=== PATIENT | female | born 1950 | race Hispanic/Latino ===

== ENCOUNTER 2018-05-17 09:10 | Inpatient (IN) | payer MEDICARE, BC ==
[~2018-05-17] VITALS: Ht 165.1 cm; Wt 147.2 kg
[2018-05-17] VITALS (11 sets, daily range): BP systolic 100–139; BP diastolic 41–63
[2018-05-17] MEDS ORDERED: VANCOMYCIN 1GM/NS 250 ML 250 ML IV ONE (10:15)
[2018-05-17] MEDS ORDERED: PIPER-TAZ 3.375 GM 50 ML IV NR (10:15)
[2018-05-17 10:55] LABS: BASOPHILS % 0.2 % (0.0-1.0); EOSINOPHILS % 0.2 % (0.0-6.0); HEMATOCRIT 42.4 % (34.2-44.1); HEMOGLOBIN 14.4 g/dL (12.0-16.0); LYMPHOCYTES # (AUTO) 0.3 (1.0-3.2); LYMPHOCYTES % 3.6 % (18.0-39.1); MEAN CORPUSCULAR HEMOGLOBIN 34.4 pg (28-32); MEAN CORPUSCULAR VOLUME 101.4 fL (81-99); MONOCYTES # (AUTO) 0.4 (0.2-0.8); MONOCYTES % 4.7 % (4.4-11.3); NEUTROPHILS # (AUTO) 8.3 (2.1-6.9); NEUTROPHILS % 90.2 % (38.7-80.0); RED BLOOD COUNT 4.18 x10e6/uL (3.6-5.1); RED CELL DISTRIBUTION WIDTH 15.8 % (11.7-14.4)
[2018-05-17 10:56] LABS: CLARITY,URINE CLOUDY (CLEAR); COLOR,URINE YELLOW (YELLOW); KETONES,URINE TRACE (NEGATIVE); LEUKOCYTE ESTERASE ,URINE NEGATIVE (NEGATIVE); NITRITE,URINE POSITIVE (NEGATIVE); PROTEIN,URINE DIPSTICK 1+ (NEGATIVE); URINE UROBILINOGEN 4 mg/dL (0.2 - 1)
[2018-05-17 10:57] LABS: BILIRUBIN,URINE 3+ (NEGATIVE)
[2018-05-17 10:58] LABS: INR 2.15; PROTHROMBIN TIME 25.6 seconds (11.9-14.5)
[2018-05-17 10:59] LABS: PARTIAL THROMBOPLASTIN TIME 48.3 seconds (23.8-35.5)
[2018-05-17 11:07] LABS: BACTERIA,URINE FEW /HPF; EPITHELIAL CELLS,URINE FEW /LPF; WBC,URINE (MAN) 0-5 /HPF (0-5)
[2018-05-17 11:08] LABS: YEAST,URINE RARE
[2018-05-17 11:14] LABS: ALBUMIN 2.2 g/dL (3.5-5.0); ALBUMIN/GLOBULIN RATIO 0.6 (0.8-2.0); ANION GAP 17.3 mmol/L (8-16); CALCIUM 8.4 mg/dL (8.4-10.2); CREATININE, SERUM 1.5 mg/dL (0.57-1.11); MAGNESIUM 1.4 MG/DL (1.3-2.1); POTASSIUM 3.3 mmol/L (3.5-5.1)
[2018-05-17 11:20] LABS: B-TYPE NATRIURETIC PEPTIDE2 408.1 pg/mL (0-100)
--- NOTE | 2018-05-17 11:20 | Diagnostic Imaging Report ---
PROCEDURE: CHEST SINGLE (PORTABLE) COMPARISON: None. INDICATIONS: LEG EDEMA FINDINGS: LUNGS: Mild pulmonary vascular congestion. PLEURA: No effusions or pneumothorax. HEART & MEDIASTINUM: The heart is at the upper limits of normal in size. BONES & SOFT TISSUES: No acute findings. CONCLUSION: Mild pulmonary vascular congestion. Chintan Boyd D.O. Dictated by: Chintan Boyd D.O. on 05/17/2018 at 11:29 Electronically approved by: Chintan Boyd D.O. on 05/17/2018 at 11:29
[2018-05-17 11:21] LABS: PLATELET COUNT 38 x10e3/uL (140-360)
[2018-05-17 11:34] LABS: CREATINE KINASE MB 1.1 ng/mL (0-5.0); THYROID STIMULATING HORMONE 3.926 uIU/mL (0.350-4.940)
[2018-05-17] MEDS ORDERED: ONDANSETRON HCL INJ 2 MG/ML VIAL IV PRN (12:15)
--- OUTSIDE RECORDS SUMMARY | 2018-05-17 12:25 | XMS REPORT ---
[facility] Address Unknown Phone Unavailable Care Team Providers Care [employer] Name Role Phone Tammie JOSHUA Unavailable Unavailable Problems This patient has no known problems. Allergies, Adverse Reactions, Alerts This patient has no known allergies or adverse reactions. Medications This patient has no known medications. Results Test Description Test Time Test Comments Text Results Atomic Results Result Comments CHEST SINGLE (PORTABLE) 2018-05-17 11:29:00 [facility] [address] [address] Patient Name: STARLA FRENCH MR #: [id number] : 1950 Age/Sex: 67/F Req #: [id number] Adm Physician: Ordered by: ALEXIS JOSHUA MD Report #: [id number] Location: ER Room/Bed: Procedure: [id number] DX/CHEST SINGLE (PORTABLE) Exam Date: 05/17/18 Exam Time: 1040 REPORT STATUS: Signed PROCEDURE: CHEST SINGLE (PORTABLE) COMPARISON: None. INDICATIONS: LEG EDEMA FINDINGS: LUNGS: Mild pulmonary vascular congestion. PLEURA: No effusions or pneumothorax. HEART MEDIASTINUM: The heart is at the upper limits of normal in size. BONES SOFT TISSUES: No acute findings. CONCLUSION: Mild pulmonary vascular congestion. Heydi Boyd D.O. Dictated by: Heydi Boyd D.O. on 05/17/2018 at 11:29 Electronically approved by: Heydi Boyd D.O. on 05/17/2018 at 11:29 Dictated By: HEYDI BOYD DO 112 Transcribed By: JUAN MANUEL on 05/17/181128 COPY TO: ALEXIS JOSHUA MD
[2018-05-17 13:17] LABS: BAND NEUTROPHILS % (MANUAL) 12 %; LYMPHOCYTES % (MANUAL) 4 % (19-48); MONOCYTES % (MANUAL) 8 % (3.4-9.0); NEUTROPHILS % (MANUAL) 76 % (40-74)
[2018-05-17 13:18] LABS: ANISOCYTOSIS SLIG; PLATELET ESTIMATE MARKEDLY DECREASED; PLATELET MORPHOLOGY COMMENT FEW GIANT; POIKILOCYTOSIS SLIGHT; RBC MORPHOLOGY COMMENT NORMAL
--- NOTE | 2018-05-17 13:29 | Diagnostic Imaging Report ---
EXAMINATION: CT of the abdomen and pelvis without contrast. TECHNIQUE: Helical CT images of the abdomen and pelvis were performed from the lung bases to the lesser trochanters. No intravenous contrast was given per renal stone protocol. Coronal and sagittal reformatted images were obtained.Dose modulation, iterative reconstruction, and/or weight based adjustment of the mA/kV was utilized to reduce the radiation dose to as low as reasonably achievable. COMPARISON: None. CLINICAL HISTORY:Elevated liver function enzymes DISCUSSION: ABSENCE OF INTRAVENOUS CONTRAST DECREASES SENSITIVITY FOR DETECTION OF FOCAL LESIONS AND VASCULAR PATHOLOGY. ABDOMEN/PELVIS: LOWER THORAX: Unremarkable. HEPATOBILIARY:Nodular contour of the liver with enlargement of the left lobe and caudate. Cholelithiasis. SPLEEN: The spleen is enlarged measuring 16 cm. PANCREAS: No focal masses or ductal dilatation. ADRENALS: No adrenal nodules. KIDNEYS/URETERS: No hydronephrosis, stones, or solid mass lesions. PELVIC ORGANS/BLADDER: The bladder is normal. PERITONEUM/RETROPERITONEUM: No free air or fluid. LYMPH NODES: No intra-abdominal,retroperitoneal, pelvic or inguinal lymphadenopathy. VESSELS: The celiac trunk,superior and inferior mesenteric and bilateral renal arteries are patent The portal, superior mesenteric and splenic veins are patent. GI TRACT: No distention or wall thickening. Scattered diverticulosis. BONES AND SOFT TISSUES: Multilevel degenerative disc disease with fusion at L4-L5 and L5-S1. IMPRESSION: Cirrhotic liver morphology with portal hypertension manifested by splenomegaly. Cholelithiasis Signed by: Dr. Stephen Jay M.D. on 05/17/2018 1:25 PM
[2018-05-17] MEDS: SODIUM CHLORIDE 0.9% 1000ML 1,000 ML IV SCH ×2 (14:20→20:58)
[2018-05-17] MEDS: PIPERACILLIN/TAZO 2.25 GM 50 ML IV SCH (18:25)
[2018-05-17] MEDS ORDERED: MORPHINE SULFATE 2 MG/ML SYR IV PRN (20:45)
[2018-05-17] MEDS: MORPHINE SULFATE INJ 4 MG/ML INJ IV PRN (20:58)
[2018-05-18] VITALS (24 sets, daily range): BP systolic 95–144; BP diastolic 42–81
[2018-05-18] MEDS: PIPERACILLIN/TAZO 2.25 GM 50 ML IV SCH ×3 (00:32→12:00)
[2018-05-18 04:35] LABS: BASOPHILS # (AUTO) 0.1 (0.0-0.1); EOSINOPHILS % 0.4 % (0.0-6.0); HEMATOCRIT 35.5 % (34.2-44.1); HEMOGLOBIN 11.7 g/dL (12.0-16.0); LYMPHOCYTES # (AUTO) 0.4 (1.0-3.2); LYMPHOCYTES % 5.4 % (18.0-39.1); MEAN CORPUSCULAR HEMOGLOBIN 33.8 pg (28-32); MEAN CORPUSCULAR VOLUME 102.6 fL (81-99); MONOCYTES # (AUTO) 0.8 (0.2-0.8); NEUTROPHILS # (AUTO) 6.6 (2.1-6.9); RED BLOOD COUNT 3.46 x10e6/uL (3.6-5.1)
[2018-05-18 04:43] LABS: PLATELET COUNT 31 x10e3/uL (140-360)
[2018-05-18 04:53] LABS: INR 2.25; PROTHROMBIN TIME 26.6 seconds (11.9-14.5)
[2018-05-18 04:54] LABS: PARTIAL THROMBOPLASTIN TIME 47.9 seconds (23.8-35.5)
[2018-05-18 05:03] LABS: ALBUMIN 1.6 g/dL (3.5-5.0); ALBUMIN/GLOBULIN RATIO 0.5 (0.8-2.0); ANION GAP 15.6 mmol/L (8-16); CALCIUM 7.7 mg/dL (8.4-10.2); CREATININE, SERUM 1.35 mg/dL (0.57-1.11); POTASSIUM 3.6 mmol/L (3.5-5.1)
[2018-05-18 05:09] LABS: CREATINE KINASE MB 0.5 ng/mL (0-5.0)
--- NOTE | 2018-05-18 06:09 | Diagnostic Imaging Report ---
EXAMINATION: CHEST SINGLE (PORTABLE) INDICATION: Infectious process. COMPARISON: Abdominal CT 05/27/2018 FINDINGS: AP view TUBES and LINES: None. LUNGS: Lungs are well inflated. Central pulmonary venous congestion. Mild bibasilar atelectasis. There is no evidence of pneumonia or pulmonary edema. PLEURA: No pleural effusion or pneumothorax. HEART AND MEDIASTINUM: Mild enlargement of the cardiac silhouette. BONES AND SOFT TISSUES: No acute osseous lesion. Soft tissues are unremarkable. UPPER ABDOMEN: No free air under the diaphragm. IMPRESSION: Mild enlargement of the cardiac silhouette with central pulmonary venous congestion. Signed by: DR. Jefferson Oglesby MD on 05/18/2018 6:06 AM
[2018-05-18 07:19] LABS: ANISOCYTOSIS SLIGHT; BAND NEUTROPHILS % (MANUAL) 7 %; LYMPHOCYTES % (MANUAL) 7 % (19-48); METAMYELOCYTES % (MANUAL) 1 % (0-0); MONOCYTES % (MANUAL) 7 % (3.4-9.0); NEUTROPHILS % (MANUAL) 78 % (40-74); PLATELET ESTIMATE MODERATELY DECREASED; RBC MORPHOLOGY COMMENT NORMAL; TOXIC GRANULATION SLIGHT
[2018-05-18 07:20] LABS: PLATELET MORPHOLOGY COMMENT NORMAL
[2018-05-18] MEDS: SODIUM CHLORIDE 0.9% 1000ML 1,000 ML IV SCH ×2 (08:45→22:06)
[2018-05-18] MEDS: MORPHINE SULFATE INJ 4 MG/ML INJ IV PRN (10:34)
[2018-05-18 13:44] LABS: CREATINE KINASE MB 0.5 ng/mL (0-5.0)
[2018-05-18] MEDS ORDERED: VANCOMYCIN 1GM/NS 250 ML 250 ML IV ONE (14:15)
[2018-05-18] MEDS ORDERED: LEVOFLOXACIN 500MG/D5W 100ML 100 ML IV ONE (14:49)
[2018-05-18] MEDS ORDERED: MEROPENEM 500 MG VIAL ONE (14:56)
[2018-05-18] MEDS ORDERED: SODIUM CHLORIDE 0.9% 50ML 50 ML ONE (14:56)
[2018-05-18] MEDS: MEROPENEM 500MG/ NS 50ML 50 ML IV SCH ×2 (15:00→22:06)
[2018-05-18] MEDS: DOXYCYCLINE 100MG/NS 100ML 100 ML IV SCH (15:40)
--- NOTE | 2018-05-18 16:37 | History and Physical ---
PRIMARY CARE PHYSICIAN: Unassigned. CHIEF COMPLAINT: Sepsis with shock and bilateral lower extremity cellulitis with blister, lymphedema worse on the left leg compared to the right. HISTORY OF PRESENT ILLNESS: Patient is a 67-year-old female with severe sepsis associated with low blood pressure, dehydration, left lower extremity significantly red with blister. Patient has not seen any doctor for quite some time. She does not have a primary care physician. In the emergency room, the patient with low-grade fever, blood pressure was low, but she does have vascular congestion; therefore, not much of fluid can be given. Patient did place on normal saline at 75 mL an hour. Her left lower extremity swelling with redness. She does have severe coagulopathy. Her platelet was 31 and her INR was 2.2. The patient has a portal hypertension associated with liver cirrhosis. The patient is morbidly obese and she is now admitted to the ICU for treatment. Antibiotic initiated. PAST MEDICAL HISTORY: Bilateral lower extremity lymphedema for quite some time. PAST SURGICAL HISTORY: Noncontributory. SOCIAL HISTORY: Patient does not smoke or use alcohol. No recreational drugs. ALLERGIES: NO KNOWN ALLERGY. HOME MEDICATIONS: None. REVIEW OF SYSTEMS: Increasing shortness of breath, bilateral lower extremity pain, worse on the left compared to right, blister and redness. PHYSICAL EXAMINATION VITAL SIGNS: T-max is 100, blood pressure 131/83, pulse rate 90, and respirations 20. GENERAL: The patient is in no acute distress. She is awake. HEENT: Normocephalic, atraumatic. Sclerae anicteric. NECK: Supple grossly. PULMONARY: Diminished breath sounds bilaterally with some rales. CARDIOVASCULAR: S1 and S2. Regular rate and rhythm. ABDOMEN: Morbidly obese. EXTREMITIES: Left lower extremities significantly swollen with redness and blistering. Right lower extremity mildly edematous with some redness as well. NEUROLOGIC: No focal deficit. LABORATORY: Sodium is 139, potassium 3.6, chloride 108, bicarb 19, BUN 46, creatinine 1.3, and glucose 86. WBC is 8.2, hemoglobin 11.7, hematocrit 35.5, and platelets 31,000. PTT 26.6, PTT 47.9, INR is 2.25. AST is 41, ALT 31, and total bilirubin is 6.1. IMPRESSION 1. Sepsis with shock. 2. Severe left lower extremity cellulitis. 3. Coagulopathy secondary to liver cirrhosis and infection, possible from sepsis and bacteremia. 4. Jaundice with total bilirubin is 6.1 with poor hypertension on the CT scan. 5. Critically ill, but stable. PLAN: Continue with IV antibiotics. Echocardiogram. Consultation with Dr. Gifty Jarvis and Dr. Polo Starkey. Add on vancomycin. Check culture. Continue with current treatment. The patient will need to monitor coagulation closely. The patient may need further workup for her liver disease. We will consult gastroenterology as well. Job#: [id number] FEDERICO
[2018-05-18 16:42] LABS: HIV 1&2 AB SCREEN NON-REACTIVE (NONREACTIVE)
[2018-05-18] MEDS: LEVOFLOXACIN 500MG/D5W 100ML 100 ML IV SCH (17:00)
--- NOTE | 2018-05-18 17:40 | Consultation ---
DATE OF CONSULTATION: HISTORY OF PRESENT ILLNESS: This is a patient who is currently in the intensive care unit. She is a 67-year-old female with history of obesity. She has not seen a physician in more than 15 years. Beside the obesity, she does have a strong family history of liver cirrhosis, her mother had it and her sister had it, they both at early age. The patient comes into the emergency room because she is not feeling well. Her left leg is red and swollen. The patient is telling me that she has been sick for some time. Both legs are getting swollen in the last few days, but the patient noted in the last few days that in left leg, there is redness and swelling and of interest when I examined her, there is black bullous lesion noted on the leg. The patient was admitted. When she first came to emergency room, she was hypotensive, so she was admitted to intensive care unit, but she is better now in terms of vital signs. PAST MEDICAL HISTORY: She denies, but she does have obesity noticeably. She also have bilateral lower extremities lymphedema. PAST SURGICAL HISTORY: She denies. ALLERGIES: NKA. SOCIAL HISTORY: There is no smoking, drug abuse, or alcohol abuse. The patient lives at home. No hunting or camping. No water exposure. LABORATORY DATA: White count is 8.20, hemoglobin 11.7, hematocrit 35, her platelet of 31 on admission. Her sodium 139, potassium 3.6, creatinine 1.35 today, it was 1.5 on admission. Her AST 57, ALT 42, lactic acid 39. FAMILY HISTORY: Liver cirrhosis. REVIEW OF SYSTEMS GENERAL: She is just not feeling well in general, but she is feeling better in general since she came here. HEENT: There is no headache, visual changes, hearing changes. GI: There is no nausea, vomiting, or diarrhea. CARDIAC: There is no arrhythmia. NEURO: No seizure activity. SKIN: There is no other rashes except on the leg as mentioned above. Both legs with erythematous changes but the left leg has a bullous lesion and it is more red than the right. PHYSICAL EXAMINATION GENERAL: She is currently alert, oriented. Does not seem to be in acute distress. VITALS: Stable, currently afebrile. HEENT: She does not appear icteric. NECK: Supple. CHEST: Clear. HEART: S1 and S2. No murmur. ABDOMEN: Soft, obese. EXTREMITIES: The leg, there is significant erythema on the left leg from and the ankle all the way to the knee. There is black bullous lesion noted on the leg anteriorly. The right leg, there is induration and mild erythema. IMPRESSION 1. Sepsis on admission, bacteremia gram-negative. Concern about Vibrio vulnificus in a patient who have liver disease. We will put him on meropenem, doxycycline, and Levaquin. 2. Cellulitis of the leg, concern about soft tissue infection, concern about vibrio. We will observe. I told patient and the nurse if there is new bullous lesion, they are to contact me. 1. Liver cirrhosis, newly diagnosed. Will check hepatitis A, B and C with concern that there is hereditary component to it with a strong family history. GI has been consulted. 2. Obesity. 3. Chronic kidney disease with acute kidney injury. 4. We will follow with you. Job#: [id number] KATERIN
[2018-05-19] VITALS (17 sets, daily range): BP systolic 107–150; BP diastolic 36–66
[2018-05-19] MEDS: DOXYCYCLINE 100MG/NS 100ML 100 ML IV SCH ×2 (03:00→14:29)
[2018-05-19 05:02] LABS: BASOPHILS % 0.2 % (0.0-1.0); EOSINOPHILS # (AUTO) 0.2 (0.0-0.4); EOSINOPHILS % 1.8 % (0.0-6.0); HEMATOCRIT 35.1 % (34.2-44.1); HEMOGLOBIN 11.9 g/dL (12.0-16.0); LYMPHOCYTES % 8.1 % (18.0-39.1); MEAN CORPUSCULAR HEMOGLOBIN 33.9 pg (28-32); MEAN CORPUSCULAR HGB CONC 33.9 g/dL (31-35); MONOCYTES # (AUTO) 1.6 (0.2-0.8); MONOCYTES % 12.8 % (4.4-11.3); NEUTROPHILS # (AUTO) 8.2 (2.1-6.9); NEUTROPHILS % 67.8 % (38.7-80.0); RED BLOOD COUNT 3.51 x10e6/uL (3.6-5.1); RED CELL DISTRIBUTION WIDTH 16.1 % (11.7-14.4)
[2018-05-19 05:06] LABS: PLATELET COUNT 38 x10e3/uL (140-360)
[2018-05-19 05:20] LABS: ALBUMIN 1.6 g/dL (3.5-5.0); ALBUMIN/GLOBULIN RATIO 0.5 (0.8-2.0); ANION GAP 12.7 mmol/L (8-16); CALCIUM 7.6 mg/dL (8.4-10.2); CREATININE, SERUM 1.54 mg/dL (0.57-1.11); POTASSIUM 3.7 mmol/L (3.5-5.1)
[2018-05-19 05:43] LABS: THYROID STIMULATING HORMONE 5.143 uIU/mL (0.350-4.940)
[2018-05-19 06:15] LABS: FOLATE 6.4 ng/mL (7.0-15.4)
[2018-05-19] MEDS: MEROPENEM 500MG/ NS 50ML 50 ML IV SCH ×3 (07:00→22:00)
[2018-05-19] MEDS: VANCOMYCIN 1GM/NS 250 ML 250 ML IV SCH (09:00)
[2018-05-19 11:45] LABS: BAND NEUTROPHILS % (MANUAL) 15 %; EOSINOPHILS % (MANUAL) 1 % (0-7); LYMPHOCYTES % (MANUAL) 7 % (19-48); MONOCYTES % (MANUAL) 13 % (3.4-9.0); NEUTROPHILS % (MANUAL) 64 % (40-74)
[2018-05-19 11:46] LABS: PLATELET ESTIMATE MARKEDLY DECREASED; PLATELET MORPHOLOGY COMMENT NORMAL; RBC MORPHOLOGY COMMENT NORMAL
[2018-05-19] MEDS ORDERED: PHYTONADIONE 10 MG/ML AMP SQ ONE (12:00)
[2018-05-19] MEDS: LEVOTHYROXINE SODIUM 25 MCG TABLET PO SCH (13:12)
--- NOTE | 2018-05-19 14:42 | Consultation ---
DATE OF CONSULTATION: May 19, 2018 REASON FOR CONSULTATION: Cirrhosis. HISTORY OF PRESENT ILLNESS: Ms. Little is a 67-year-old female, with apparently no significant past medical history who comes into the emergency room complaining of feeling ill. The patient was found to have significant laboratory abnormalities, also gram-negative septicemia with lower extremity edema, was admitted. Labs also revealed possible cirrhosis and a GI consult has been placed. Upon interrogation, the patient denies actually ever being told that she had cirrhosis though she did not seek physician help. Evaluation for the last 16 years has not had any recent labs or anything like that. Interestingly, there is significant history of liver disease in her family with apparently 2 of her siblings and her mother apparently dying of liver disease. Risk factors for liver disease, morbid obesity. She denies alcohol abuse, denies transfusion, denies tattoos, denies intravenous drug use, denies body piercing. PAST MEDICAL HISTORY: As in HPI. FAMILY HISTORY: As is stated before. Significant for liver disease. SOCIAL HISTORY: Apparently, she does not smoke or drink. REVIEW OF SYSTEMS: As in the HPI. ALLERGIES: NO APPARENT DRUG ALLERGY. PHYSICAL EXAMINATION VITAL SIGNS: All within normal limits. GENERAL: A pleasant obese female in no distress. HEENT: Unremarkable. She appeared to be anicteric. NECK: Supple. LUNGS: Clear. ABDOMEN: Obese and soft with no obvious masses or tenderness, though difficult to assess for hepatosplenomegaly. There was no obvious ascites, though because of her body habitus, it was also difficult to assess. No rebound or guarding. RECTAL: Deferred. NEUROLOGICAL: There were no focal deficits. No asterixis. She was alert and oriented x3. LABORATORY DATA: Today, white count was 12,100, hemoglobin 11.9, hematocrit 35. MCV was 100. Platelet count was 38,000 which has not changed since admission. Differential with a left shift. Blood chemistry today showed sodium of 132, potassium of 3.7, BUN was 59, creatinine was 1.54. Glucose was 85. Total bilirubin was 6.8, AST was 55, ALT was 33, alk phos was 118, albumin was 1.6. INR was 2.25, PTT was 47.9, and PT was 26.6. Hepatitis studies are pending. HIV studies were negative. CT scan of abdomen and pelvis, did reveal possible cholelithiasis, with cirrhotic liver and portal hypertension. ASSESSMENT: A middle-aged female admitted with sepsis of unknown source, we are asked to evaluate for liver disease. Liver disease at this point seems to be fairly well compensated and I suspect most likely it is either going to be cryptogenic or secondary to nonalcoholic steatohepatitis and morbid obesity. She seems to be having reasonable compensated disease at this point. PLAN 1. We will obtain labs to rule out other forms of chronic liver disease, particularly, autoimmune liver disease which may be a possibility, considering her family history. 2. Abdominal ultrasound with Doppler. 3. We will follow with you. She may need an EGD to rule out esophageal varices prior to discharge. Job#: [id number] BAILEE
[2018-05-19] MEDS ORDERED: ALBUMIN 25% 12.5GM 0.25 GM/ML BTL IV ONE ×2 (15:00→17:00)
[2018-05-19] MEDS: LEVOFLOXACIN 500MG/D5W 100ML 100 ML IV SCH (17:05)
[2018-05-19] MEDS: SODIUM BICARBONATE 650 MG TAB PO SCH (18:09)
[2018-05-19] MEDS: TRAMADOL HCL 50 MG TAB PO PRN (18:15)
--- NOTE | 2018-05-19 19:52 | Consultation ---
DATE OF CONSULTATION: May 18, 2018 CARDIOLOGY CONSULTATION ATTENDING PHYSICIAN: Dr. Lu Harman. CLINICAL HISTORY: This is a 67-year-old woman referred by Dr. Lu Harman for evaluation of possible congestive heart failure with chest x-ray showing cardiomegaly and pulmonary edema, but with the patient not complaining of any shortness of breath nor any chest pains. This unfortunate woman does not see a physician and has not seen one for a long time. She has extensive family history of cryptogenic cirrhosis of the liver including mother, sister, and 2 aunts. She presented to the emergency room because of lower extremity edema causing cellulitis and gram-negative bacteremia. Additionally, she was found to be cirrhotic and jaundiced with bilirubin was 6.8, albumin was 1.6, the creatinine was 1.3 with BUN of 46. Cardiac enzymes were negative. Cardiology consultation requested. PAST MEDICAL HISTORY: Remarkable for edema of lower extremities for approximately a year. This edema tends to be better when she wakes up in the morning, worse at the end of the day. PAST SURGERIES: None. 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 Denies smoking, drinking, drug abuse. No history of hepatitis. ALLERGIES: NONE KNOWN. FAMILY HISTORY: Sister, mother, and 2 aunts from cryptogenic cirrhosis. There is no clear history of hepatitis in her environment. REVIEW OF SYSTEMS: Noncontributory. PHYSICAL EXAMINATION GENERAL: She is markedly obese, appears to be comfortable. CARDIAC: Jugular veins were not distended. S1, S2 are regular. There is a 2/6 systolic murmur. LUNGS: Clear. ABDOMEN: Soft. Bowel sounds are present. EXTREMITIES: Showed 3+ pitting edema. LABORATORY STUDIES: The sodium is 139, potassium 3.6, bicarb is 19, BUN is 46, creatinine 1.35, bilirubin 6.1, alkaline phosphatase 98, albumin 1.6. White count was 8200, platelet count 31,000. IMPRESSION 1. Rule out congestive heart failure with chest x-ray suspicious but could be artefact of her obesity and technique. She denies any chest pains or shortness of breath. 2. Cirrhosis of the liver with elevated INR of 2.2, bilirubin of 6.1 and splenomegaly with portal hypertension of undetermined etiology. 3. Extensive family history of cryptogenic cirrhosis in mother, sister, and 2 aunts. 4. Azotemia with BUN of 46, creatinine 1.35, likely to be acute. 5. Hypoalbuminemia, exacerbating peripheral edema. 6. Peripheral edema, causing cellulitis and gram-negative sepsis. 7. Gram-negative bacteremia. 8. Possible hypothyroidism, TSH of 5.1. 9. Severe thrombocytopenia, platelet count 38,000, probably related to cirrhosis of the liver. RECOMMENDATIONS: Review echocardiogram. This patient's EKG does not show any acute changes to suggest coronary artery disease. Correct metabolic abnormalities including acidosis, hypoalbuminemia in order to enhance the diuresis for her severe peripheral edema. Job#: [id number] LPA cc:LU HARMAN MD
[2018-05-20] VITALS (8 sets, daily range): BP systolic 132–157; BP diastolic 55–68
[2018-05-20] MEDS: SODIUM BICARBONATE 650 MG TAB PO SCH ×4 (00:12→17:20)
[2018-05-20] MEDS: TRAMADOL HCL 50 MG TAB PO PRN ×2 (00:15→12:08)
[2018-05-20] MEDS: DOXYCYCLINE 100MG/NS 100ML 100 ML IV SCH ×2 (03:00→16:21)
[2018-05-20] MEDS: MEROPENEM 500MG/ NS 50ML 50 ML IV SCH ×3 (05:28→21:59)
[2018-05-20] MEDS: LEVOTHYROXINE SODIUM 25 MCG TABLET PO SCH (05:28)
[2018-05-20 05:44] LABS: BASOPHILS % 0.2 % (0.0-1.0); EOSINOPHILS # (AUTO) 0.2 (0.0-0.4); EOSINOPHILS % 1.9 % (0.0-6.0); HEMATOCRIT 33.1 % (34.2-44.1); HEMOGLOBIN 11.6 g/dL (12.0-16.0); LYMPHOCYTES # (AUTO) 0.8 (1.0-3.2); LYMPHOCYTES % 6.4 % (18.0-39.1); MEAN CORPUSCULAR HEMOGLOBIN 34.3 pg (28-32); MEAN CORPUSCULAR VOLUME 97.9 fL (81-99); MONOCYTES # (AUTO) 1.4 (0.2-0.8); MONOCYTES % 11.3 % (4.4-11.3); NEUTROPHILS % 71.3 % (38.7-80.0); RED BLOOD COUNT 3.38 x10e6/uL (3.6-5.1); RED CELL DISTRIBUTION WIDTH 15.8 % (11.7-14.4)
[2018-05-20 05:48] LABS: PLATELET COUNT 40 x10e3/uL (140-360)
[2018-05-20 05:54] LABS: INR 1.75; PROTHROMBIN TIME 21.8 seconds (11.9-14.5)
[2018-05-20 06:01] LABS: ALBUMIN 2.1 g/dL (3.5-5.0); ALBUMIN/GLOBULIN RATIO 0.7 (0.8-2.0); ANION GAP 10.5 mmol/L (8-16); CALCIUM 7.9 mg/dL (8.4-10.2); CREATININE, SERUM 1.27 mg/dL (0.57-1.11); POTASSIUM 3.5 mmol/L (3.5-5.1)
[2018-05-20 06:53] LABS: ALBUMIN 1.9 g/dL (3.5-5.0); BILIRUBIN,DIRECT 4.6 mg/dL (0.0-0.5)
[2018-05-20 07:13] LABS: FERRITIN 817.2 ng/mL (4.63-204.00)
[2018-05-20 08:58] LABS: EOSINOPHILS % (MANUAL) 3 % (0-7); LYMPHOCYTES % (MANUAL) 7 % (19-48); MONOCYTES % (MANUAL) 6 % (3.4-9.0); NEUTROPHILS % (MANUAL) 83 % (40-74)
[2018-05-20 09:01] LABS: PLATELET ESTIMATE MARKEDLY DECREASED; PLATELET MORPHOLOGY COMMENT NORMAL; RBC MORPHOLOGY COMMENT NORMAL
[2018-05-20] MEDS: VANCOMYCIN 1GM/NS 250 ML 250 ML IV SCH (09:23)
--- NOTE | 2018-05-20 09:37 | Diagnostic Imaging Report ---
PROCEDURE:ABDOMINAL ULTRASOUND COMPARISON:CT Abdomen/Pelvis without contrast 05/17/18. INDICATIONS:CIRRHOSIS FINDINGS: Liver: The liver is heterogeneous in appearance and measures up to 13.4 cm. Normal hepatic parenchymal echogenicity. No focal mass. Main portal vein: Measures 0.7 cm, Hepatopetal flow. Gallbladder: Limited evaluation due to overlying bowel gas. Cholelithiasis noted on CT from 05/17/18 is not well seen on ultrasound. Common Bile Duct: Measures 0.4 cm. No echogenic filling defect. Sonographic Zimmerman's sign: Negative. Right kidney: Measures 11.1 cm. No solid or cystic mass, echogenic calculi, or hydronephrosis. Normal parenchymal echogenicity. Left kidney: Measures 13.0 cm. No solid or cystic mass, echogenic calculi, or hydronephrosis. Normal parenchymal echogenicity. Spleen: Enlarged, measuring 16 cm. Pancreas: Limited evaluation due to body habitus. Inferior vena cava: Limited evaluation due to body habitus. Aorta: Limited evaluation due to body habitus. Ascites: None. CONCLUSION: Somewhat limited evaluation due to body habitus. Cirrhotic morphology of the liver. Splenomegaly. Dictated by: BONI CRANE M.D. on 05/20/2018 at 9:46 Electronically approved by: BONI CRANE M.D. on 05/20/2018 at 9:46
[2018-05-20] MEDS: LEVOFLOXACIN 500MG/D5W 100ML 100 ML IV SCH (17:20)
[2018-05-20] MEDS: MORPHINE SULFATE INJ 4 MG/ML INJ IV PRN (17:20)
[2018-05-21] VITALS (7 sets, daily range): BP systolic 125–171; BP diastolic 48–76
[2018-05-21] MEDS: DOXYCYCLINE 100MG/NS 100ML 100 ML IV SCH ×2 (02:52→15:32)
[2018-05-21] MEDS: MEROPENEM 500MG/ NS 50ML 50 ML IV SCH ×3 (06:33→23:10)
[2018-05-21] MEDS: LEVOTHYROXINE SODIUM 25 MCG TABLET PO SCH (06:33)
[2018-05-21] MEDS: VANCOMYCIN 1GM/NS 250 ML 250 ML IV SCH ×2 (10:00→21:09)
[2018-05-21 11:19] LABS: ALBUMIN/GLOBULIN RATIO 0.7 (0.8-2.0); ANION GAP 13.8 mmol/L (8-16); CALCIUM 7.3 mg/dL (8.4-10.2); CREATININE, SERUM 0.99 mg/dL (0.57-1.11); POTASSIUM 3.8 mmol/L (3.5-5.1)
[2018-05-21] MEDS: TRAMADOL HCL 50 MG TAB PO PRN (14:57)
[2018-05-21] MEDS: LEVOFLOXACIN 500MG/D5W 100ML 100 ML IV SCH (16:32)
[2018-05-22 00:13] VITALS: BP 130/59
[2018-05-22] MEDS: DOXYCYCLINE 100MG/NS 100ML 100 ML IV SCH ×2 (03:14→15:02)
[2018-05-22 04:00] VITALS: BP 139/54
[2018-05-22] MEDS: LEVOTHYROXINE SODIUM 25 MCG TABLET PO SCH (06:15)
[2018-05-22] MEDS: MEROPENEM 500MG/ NS 50ML 50 ML IV SCH ×3 (06:15→22:49)
[2018-05-22 07:59] VITALS: BP 141/56
[2018-05-22] MEDS: VANCOMYCIN 1GM/NS 250 ML 250 ML IV SCH ×2 (09:00→20:50)
[2018-05-22] MEDS ORDERED: ALBUMIN 25% 12.5GM 0.25 GM/ML BTL IV ONE (10:45)
[2018-05-22] MEDS: ACETAMINOPHEN 325 MG TAB PO PRN ×2 (10:50→11:00)
[2018-05-22] MEDS ORDERED: SODIUM CHLORIDE 452MG TAB PO NR (11:00)
[2018-05-22] MEDS ORDERED: FUROSEMIDE 20 MG TAB PO NR (11:00)
[2018-05-22] MEDS ORDERED: ALBUMIN IV ONE (11:15)
[2018-05-22 12:08] VITALS: BP 147/65
--- NOTE | 2018-05-22 15:36 | Cardiology Report ---
DATE OF STUDY: ECHOCARDIOGRAM M-MODE: Dilated left atrium. Normal left ventricular wall thickness or borderline left ventricular hypertrophy. Normal left ventricular contractility. Normal mitral and aortic valves. No pericardial effusion. SECTOR SCAN: Dilated left atrium. Borderline left ventricular hypertrophy. Normal contractility. Ejection fraction is approximately 50%. Mitral, aortic and tricuspid valves are grossly normal. There is no pericardial effusion. CARDIAC DOPPLER STUDY WITH COLOR: Trace mitral regurgitation. The E-to-A ratio is normal. CONCLUSIONS 1. Borderline left ventricular hypertrophy with ejection fraction of approximately 50%. 2. Mildly enlarged left atrium. 3. No definite evidence of hemochromatosis. Job#: [id number]
[2018-05-22] MEDS: LEVOFLOXACIN 500MG/D5W 100ML 100 ML IV SCH (15:44)
[2018-05-22 16:22] VITALS: BP 144/64
[2018-05-22 20:00] VITALS: BP 137/57
[2018-05-23] VITALS: BP 138/54
[2018-05-23] MEDS: DOXYCYCLINE 100MG/NS 100ML 100 ML IV SCH ×2 (03:16→15:00)
[2018-05-23 04:00] VITALS: BP 148/60
[2018-05-23 06:03] LABS: ALANINE AMINOTRANSFERASE 33 IU/L (0-55); ALBUMIN 2.2 g/dL (3.5-5.0); ALKALINE PHOSPHATASE 162 IU/L (40-150); ANION GAP 13.7 mmol/L (8-16); BLOOD UREA NITROGEN 41 mg/dL (7-26); BUN/CREATININE RATIO 52 (6-25); CALCIUM 7.2 mg/dL (8.4-10.2); CARBON DIOXIDE 20 mmol/L (22-29); CHLORIDE 101 mmol/L (98-107); CREATININE, SERUM 0.79 mg/dL (0.57-1.11); EST GLOMERULAR FILTRATION RATE > 60 ML/MIN (60-); GLUCOSE 107 mg/dL (74-118); POTASSIUM 3.7 mmol/L (3.5-5.1); SODIUM 131 mmol/L (136-145)
[2018-05-23] MEDS: MEROPENEM 500MG/ NS 50ML 50 ML IV SCH ×3 (06:22→22:00)
[2018-05-23] MEDS: LEVOTHYROXINE SODIUM 25 MCG TABLET PO SCH (06:22)
[2018-05-23 07:53] VITALS: BP 162/58
[2018-05-23] MEDS: VANCOMYCIN 1GM/NS 250 ML 250 ML IV SCH ×2 (09:00→20:18)
[2018-05-23] MEDS ORDERED: ALBUMIN 25% 12.5GM 0.25 GM/ML BTL IV ONE (11:15)
[2018-05-23] MEDS ORDERED: FUROSEMIDE INJ 10 MG/ML 2 ML VIAL IV NR (11:30)
[2018-05-23 11:57] VITALS: BP 145/52
[2018-05-23] MEDS ORDERED: ALBUMIN IV ONE (12:00)
[2018-05-23] MEDS: SODIUM BICARBONATE 650 MG TAB PO SCH ×2 (13:17→16:00)
[2018-05-23] MEDS: LEVOFLOXACIN 500MG/D5W 100ML 100 ML IV SCH (15:30)
[2018-05-23 15:53] VITALS: BP 162/61
[2018-05-23] MEDS: ACETAMINOPHEN 325 MG TAB PO PRN (16:00)
[2018-05-23 20:00] VITALS: BP 133/61
[2018-05-24] VITALS: BP 154/69
[2018-05-24] MEDS: ACETAMINOPHEN 325 MG TAB PO PRN ×2 (01:46→11:58)
[2018-05-24] MEDS: DOXYCYCLINE 100MG/NS 100ML 100 ML IV SCH (02:17)
[2018-05-24 04:00] VITALS: BP 146/65
[2018-05-24] MEDS: LEVOTHYROXINE SODIUM 25 MCG TABLET PO SCH (05:36)
[2018-05-24] MEDS: MEROPENEM 500MG/ NS 50ML 50 ML IV SCH ×2 (05:36→15:10)
[2018-05-24 06:02] LABS: BASOPHILS % 0.5 % (0.0-1.0); EOSINOPHILS # (AUTO) 0.1 (0.0-0.4); EOSINOPHILS % 0.6 % (0.0-6.0); HEMATOCRIT 29.5 % (34.2-44.1); HEMOGLOBIN 10.1 g/dL (12.0-16.0); LYMPHOCYTES # (AUTO) 0.4 (1.0-3.2); LYMPHOCYTES % 4.9 % (18.0-39.1); MEAN CORPUSCULAR HEMOGLOBIN 34.7 pg (28-32); MEAN CORPUSCULAR HGB CONC 34.2 g/dL (31-35); MEAN CORPUSCULAR VOLUME 101.4 fL (81-99); MONOCYTES # (AUTO) 0.5 (0.2-0.8); MONOCYTES % 6.2 % (4.4-11.3); NEUTROPHILS # (AUTO) 7.4 (2.1-6.9); NEUTROPHILS % 85.8 % (38.7-80.0); RED BLOOD COUNT 2.91 x10e6/uL (3.6-5.1)
[2018-05-24 06:10] LABS: PLATELET COUNT 39 x10e3/uL (140-360)
[2018-05-24 06:26] LABS: ALANINE AMINOTRANSFERASE 28 IU/L (0-55); ALBUMIN 2.4 g/dL (3.5-5.0); ALBUMIN/GLOBULIN RATIO 1.1 (0.8-2.0); ALKALINE PHOSPHATASE 137 IU/L (40-150); ANION GAP 13.8 mmol/L (8-16); BLOOD UREA NITROGEN 40 mg/dL (7-26); BUN/CREATININE RATIO 52 (6-25); CALCIUM 7.2 mg/dL (8.4-10.2); CARBON DIOXIDE 22 mmol/L (22-29); CHLORIDE 106 mmol/L (98-107); CREATININE, SERUM 0.77 mg/dL (0.57-1.11); EST GLOMERULAR FILTRATION RATE > 60 ML/MIN (60-); GLUCOSE 103 mg/dL (74-118); POTASSIUM 3.8 mmol/L (3.5-5.1); SODIUM 138 mmol/L (136-145)
[2018-05-24 07:20] VITALS: BP 149/68
[2018-05-24] MEDS: VANCOMYCIN 1GM/NS 250 ML 250 ML IV SCH (08:15)
[2018-05-24] MEDS: URSODIOL 300 MG CAP PO SCH ×2 (09:46→15:16)
[2018-05-24 09:48] VITALS: BP 149/68
[2018-05-24 11:39] VITALS: BP 141/63
[2018-05-24] MEDS ORDERED: FUROSEMIDE INJ 10 MG/ML 2 ML VIAL IV NR (11:45)
[2018-05-24 15:50] VITALS: BP 146/67
--- NOTE | 2018-05-24 17:56 | Discharge Summary ---
CONSULTANTS 1. Dr. Chandler Díaz 2. Dr. Raoul Farmer 3. Dr. Polo Starkey FINAL DIAGNOSES 1. Sepsis with shock. This is a gram-negative sepsis. 2. Toxic encephalopathy much improved now. 3. Bilateral lower extremity cellulitis severely on the left compared to the right. 4. 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 5. Chronic thrombocytopenia. 6. Dehydration. 7. Morbid obesity. 8. Lower extremity bilateral lymphedema. SUMMARY: Patient is a 67-year-old female, who presented to the hospital with fever, was very sick, ill, hypotensive. Patient failed multiple bolus of IV fluids. The patient ended up in the ICU. She was given multiple antibiotics and however, responded. Blood pressure much improved. Patient was stable. She was some confusion and CT scan shows patient has liver cirrhosis with portal hypertension along with increase in spleen size. Along with that, she was jaundiced with bilirubin of 6.9. Her liver enzymes, AST 55, ALT is 33, and alkaline phosphatase is 118. Her INR is 2.2 without on any anticoagulant therapy. Platelets was 38,000. Patient was very ill. She was septic with shock and admitted to the ICU. Multiple consultants saw the patient. Echocardiogram showed ejection fraction approximately 50%. Patient remained on multiple antibiotics. At this time, the patient is stable. Left lower extremity still very blistering with a large pocket of fluid. It is simmering out to the area of the dressing and along with that, her left lower extremity Significantly edematous, now much improved with treatment. The patient is stable now. She will be transferred to [facility]. Continue her multiple IV antibiotics along with care from the wound care team and with Dr. Starkey for antibiotic as well. Her liver workup will be later when her medical condition stabilized. The patient was transferred today. Job#: [id number]
== END 2018-05-24 16:41 | DRG 871 ==
LOC: ER 09:10 → ERHOLD 12:22 → ICU 15:49 → MED/SURG3 05-19 13:41
PROVIDERS: ADMIT Internal Medicine; ATTEND Internal Medicine
DX: A41.50 Gram-negative sepsis, unspecified (principal); R65.21 Severe sepsis with septic shock; G92 Toxic encephalopathy; D68.4 Acquired coagulation factor deficiency; L03.116 Cellulitis of left lower limb; L03.115 Cellulitis of right lower limb; Z68.43 Body mass index [BMI] 50.0-59.9, adult; K76.6 Portal hypertension; M25.00 Hemarthrosis, unspecified joint; E03.9 Hypothyroidism, unspecified; D69.59 Other secondary thrombocytopenia; D73.2 Chronic congestive splenomegaly; K74.69 Other cirrhosis of liver; E86.0 Dehydration; I89.0 Lymphedema, not elsewhere classified; E66.01 Morbid (severe) obesity due to excess calories; I51.7 Cardiomegaly
CPT/HCPCS: 36415; 71045; 74176; 76700; 80053; 80076; 80202; 81001; 82103; 82105; 82550; 82553; 82607; 82728; 82746; 83540; 83605; 83735; 83880; 84443; 84466; 84484; 85025; 85379; 85384; 85610; 85730; 86039; 86255; 87040; 87071; 87086; 87186; 87205; 87390; 87521; 87536; 93005; 93306; 93970; 96361; 97139; 99284; G0433; G0435; J1940; J1956; J2185; J2270; J2543; J3370; J3430; J7030; P9047